=== PATIENT | female | born 2000 | race Two or more races ===

== ENCOUNTER 2023-11-29 10:09 | Emergency (ER) | payer MEDICAID, OTHER ==
[~2023-11-29] VITALS: Ht 154.9 cm; Wt 77.8 kg
[2023-11-29 10:48] VITALS: PULSE 95; RESP 14; TEMP 98.2; O2SAT 99
[2023-11-29 11:38] VITALS: BP 130/73
== END 2023-11-29 11:47 | disposition home or self-care (01) ==
LOC: ER 10:09
DX: H11.31 Conjunctival hemorrhage, right eye (principal); R03.0 Elevated blood-pressure reading, without diagnosis of hypertension

== ENCOUNTER 2024-02-20 10:41 | Observation (INO) | payer MEDICAID ==
[~2024-02-20] VITALS: Ht 152.4 cm; Wt 80.7 kg
[2024-02-20 11:43] LABS: Basophils # (auto) 0 10 ^3/uL (0-0.2); Basophils % (auto) 0.2 % (0.0-2.0); Eosinophils # (auto) 0 10 ^3/uL (0-0.8); Eosinophils % (auto) 0.6 % (0.0-7.0); Hematocrit 33.4 % (36.0-46.0); Hemoglobin 11.2 g/dL (12.2-16.2); Lymphocytes # (auto) 2.2 10 ^3/uL (0.4-5.4); Mean Corpuscular Hemoglobin 28.9 pg (28.0-32.0); Mean Corpuscular Hgb Conc. 33.6 g/dL (32.0-36.0); Mean Corpuscular Volume 86.1 fL (80.0-100.0); Monocytes # (auto) 0.6 10 ^3/uL (0-1.3); Monocytes % (auto) 7.8 % (0.0-12.0); Neutrophils % (auto) 63.4 % (37.0-80.0); Platelet Count (auto) 300 10^3/uL (140-450); Red Blood Cells 3.88 10^6/uL (4.0-5.20); Red Cell Distribution Width 14.7 % (11.8-14.3)
[2024-02-20 11:58] LABS: Partial Thromboplastin Time 28.9 SEC (24.5-34.5); Prothrombin Time 10.6 sec (9.3-11.8)
[2024-02-20 12:07] LABS: Alanine Aminotransferase 16 U/L (7-40); Albumin 3.8 g/dL (3.2-4.8); Alkaline Phosphatase 153 U/L (46-116); Anion Gap 11 (5-15); Aspartate Aminotransferase 19 U/L (13-40); BUN/Creatinine Ratio 10.3 (10.0-20.0); Bilirubin, Total 0.3 mg/dL (0.2-1.0); Blood Urea Nitrogen 6 mg/dL (9-23); Calcium 9.2 mg/dL (8.7-10.4); Carbon Dioxide 22 mmol/L (20-31); Chloride 107 mmol/L (98-107); Glucose 86 mg/dL (74-106); Potassium 3.9 mmol/L (3.5-5.1); Sodium 140 mmol/L (136-145); Total Protein 6.7 g/dL (5.7-8.2); Uric Acid 4.1 mg/dL (3.1-7.8)
--- NOTE | 2024-02-20 12:20 | DVH ---
BIOPHYSICAL PROFILE HISTORY: PIH TECHNIQUE: Multiple transabdominal real-time grayscale sonographic images through the gravid uterus of the fetus with duplex Doppler color flow and M-mode spectral analysis FINDINGS: BIOPHYSICAL PROFILE: breathing score: 2 movement score: 2 tone score: 2 Quantitative SAUL score: 2 (SAUL: 15.4 Cm.) Total score: 8/8 Cervix appears closed and measures 3.7 cm. Single live fetus in cephalic presentation. heart rate 144 beats per minute. Anterior placenta without previa or abruption Nuchal cord is noted. IMPRESSION: 1. Biophysical profile score: 8/8 2. Nuchal cord. HS:Y
[2024-02-20] MEDS ORDERED: PREN-96 PO (12:37)
[2024-02-20] MEDS ORDERED: ASPI81CH74 PO (12:37)
[2024-02-20 13:31] LABS: Protein, Urine 10.1 mg/dL (1-14)
[2024-02-20 13:34] LABS: Creatinine, Urine 61.97 mg/dL (30.0-125.0); Urine Protein/Creatinine Ratio 0.16
[2024-02-20 13:47] LABS: Urine Bacteria FEW /hpf (None Seen); Urine Blood Negative /uL (Negative); Urine Clarity Clear (Clear); Urine Color Light-Yellow (Yellow); Urine Protein, UAD Negative (Negative); Urine Urobilinogen Normal (Negative); Urine WBC 1 /hpf (0 - 5); Urine pH 6.5 (5.0-9.0)
--- NOTE | 2024-02-20 19:20 | DVHDS2 ---
Physician Discharge Progress N Final Diagnosis: ruled out preeclampsia Operations or Procedures: Operations or Procedures S: 23yo IUP@34.3wks, sent from Dr. Rodarte's office for rule out preeclampsia. Denies UCs/LOF/VB/WAGONER/vision changes/RUQ pain. +FM. O: VSS, normotensive (taken sitting) NST reactive (verified by 2 RNs) BPP wnl Laboratory Tests Test 02/20/24 11:25 02/20/24 12:00 Range/Units White Blood Count 8.0 4.4-10.8 10^3/uL Red Blood Count 3.88 L 4.0-5.20 10^6/uL Hemoglobin 11.2 L 12.2-16.2 g/dL Hematocrit 33.4 L 36.0-46.0 % Mean Corpuscular Volume 86.1 80.0-100.0 fL Mean Corpuscular Hemoglobin 28.9 28.0-32.0 pg Mean Corpuscular Hemoglobin Concent 33.6 32.0-36.0 g/dL Red Cell Distribution Width 14.7 H 11.8-14.3 % Platelet Count 300 140-450 10^3/uL Mean Platelet Volume 6.2 L 6.9-10.8 fL Neutrophils (%) (Auto) 63.4 37.0-80.0 % Lymphocytes (%) (Auto) 28.0 10.0-50.0 % Monocytes (%) (Auto) 7.8 0.0-12.0 % Eosinophils (%) (Auto) 0.6 0.0-7.0 % Basophils (%) (Auto) 0.2 0.0-2.0 % Neutrophils # (Auto) 5.0 1.6-8.6 10 ^3/uL Lymphocytes # (Auto) 2.2 0.4-5.4 10 ^3/uL Monocytes # (Auto) 0.6 0-1.3 10 ^3/uL Eosinophils # (Auto) 0 0-0.8 10 ^3/uL Basophils # (Auto) 0 0-0.2 10 ^3/uL Nucleated Red Blood Cells 0.0 % Prothrombin Time 10.6 9.3-11.8 sec Prothrombin Time INR 1.00 0.9-1.15 Activated Partial Thromboplast Time 28.9 24.5-34.5 SEC Sodium Level 140 136-145 mmol/L Potassium Level 3.9 3.5-5.1 mmol/L Chloride Level 107 98-107 mmol/L Carbon Dioxide Level 22 20-31 mmol/L Anion Gap 11 5-15 Blood Urea Nitrogen 6 L 9-23 mg/dL Creatinine 0.58 0.550-1.02 mg/dL Glomerular Filtration Rate Calc 129 >90 mL/min BUN/Creatinine Ratio 10.3 10.0-20.0 Serum Glucose 86 74-106 mg/dL Uric Acid 4.1 3.1-7.8 mg/dL Calcium Level 9.2 8.7-10.4 mg/dL Total Bilirubin 0.3 0.2-1.0 mg/dL Aspartate Amino Transferase (AST) 19 13-40 U/L Alanine Aminotransferase (ALT) 16 7-40 U/L Alkaline Phosphatase 153 H 46-116 U/L Total Protein 6.7 5.7-8.2 g/dL Albumin 3.8 3.2-4.8 g/dL Urine Color Light-yellow Yellow Urine Clarity Clear Clear Urine pH 6.5 5.0-9.0 Urine Specific [place]pe 1.010 1.001-1.035 Urine Protein Negative Negative Urine Ketones Negative Negative Urine Blood Negative Negative /uL Urine Nitrite Negative Negative Urine Bilirubin Negative Negative Urine Urobilinogen Normal Negative mg/dL Urine Leukocyte Esterase Negative Negative /uL Urine RBC <1 0 - 4 /hpf Urine WBC 1 0 - 5 /hpf Urine Squamous Epithelial Cells Few <5 /hpf Urine Bacteria Few H None Seen /hpf Urine Creatinine 61.97 30.0-125.0 mg/dL Urine Protein/Creatinine Ratio 0.16 Urine Glucose Normal Normal mg/dL Urine Total Protein 10.1 1-14 mg/dL A: 23yo IUP@34.3wks Ruled out preeclampsia P: D/C home FKC/PTL/PreE precautions reviewed Dr. Rodarte consulted, agrees with POC. f/u with Dr. Rodarte as scheduled in the office Condition on Discharge: Stable Disposition: Home Discharge Instructions: Diet: Regular Activity: No Restrictions, As Tolerated Medications: see med list Follow Up Care: Specialist: f/u with Dr. Rodarte as scheduled in the office Discharge Statement: "Patient was advised to return to the ER or call 911 if any headaches, dizziness, shortness of breath, chest pain, abdominal pain, bleeding, fevers, or worsening of medical condition. Patient was counseled about treatment plan, medications, possible side effects, patientverbalized understanding. All questions were answered to the best of my ability. This discharge took greater then 30 minutes in planning, reviewing documenta tion, counseling the patient, and discussing with other team members." MIKE ESTRADA CNM Feb 20, 2024 19:19
== END 2024-02-20 14:30 | disposition home or self-care (01) ==
LOC: LDRP 10:41 → UNDOADMOB 10:41 → LDRP 11:06
PROVIDERS: ADMIT Obstetrics & Gynecology; ATTEND Obstetrics & Gynecology
DX: O13.3 Gestational [pregnancy-induced] hypertension without significant proteinuria, third trimester (principal); Z3A.34 34 weeks gestation of pregnancy; Z79.899 Other long term (current) drug therapy
CPT/HCPCS: 36415; 59025; 76818; 80053; 81001; 81002; 82570; 84156; 84550; 85025; 85610; 85730; 94760; G0378

== ENCOUNTER 2024-03-19 13:43 | Observation (INO) | payer MEDICAID ==
[~2024-03-19] VITALS: Ht 152.4 cm; Wt 81.6 kg
[~2024-03-19 13:43] MED LIST: ASPI81CH74 PO; PREN-96 PO
--- NOTE | 2024-03-19 15:44 | DVH ---
BIOPHYSICAL PROFILE HISTORY: R/O PIH TECHNIQUE: Multiple transabdominal real-time grayscale sonographic images through the gravid uterus of the fetus with duplex Doppler color flow and M-mode spectral analysis FINDINGS: BIOPHYSICAL PROFILE: breathing score: 2 movement score: 2 tone score: 2 Quantitative SAUL score: 2 (SAUL: 17.5 Cm.) Total score: 8/8 Single live fetus in cephalic presentation. heart rate 149 beats per minute. Anterior placenta without previa or abruption IMPRESSION: 1. Biophysical profile score: 8/8 HS:Y
[2024-03-19 17:03] LABS: Basophils # (auto) 0 10 ^3/uL (0-0.2); Basophils % (auto) 0.4 % (0.0-2.0); Eosinophils # (auto) 0.1 10 ^3/uL (0-0.8); Eosinophils % (auto) 0.6 % (0.0-7.0); Hematocrit 34.3 % (36.0-46.0); Hemoglobin 11.7 g/dL (12.2-16.2); Lymphocytes # (auto) 2.3 10 ^3/uL (0.4-5.4); Lymphocytes % (auto) 28.2 % (10.0-50.0); Mean Corpuscular Hemoglobin 28.7 pg (28.0-32.0); Mean Corpuscular Hgb Conc. 34.1 g/dL (32.0-36.0); Mean Corpuscular Volume 84.1 fL (80.0-100.0); Monocytes # (auto) 0.5 10 ^3/uL (0-1.3); Monocytes % (auto) 6.8 % (0.0-12.0); Neutrophils # (auto) 5.2 10 ^3/uL (1.6-8.6); Nucleated Red Blood Cells % 0.1 %; Platelet Count (auto) 274 10^3/uL (140-450); Red Blood Cells 4.07 10^6/uL (4.0-5.20); Red Cell Distribution Width 15.8 % (11.8-14.3); White Blood Cell 8.1 10^3/uL (4.4-10.8)
[2024-03-19 17:19] LABS: INR 0.97 (0.9-1.15); Partial Thromboplastin Time 28.8 SEC (24.5-34.5); Prothrombin Time 10.3 sec (9.3-11.8)
[2024-03-19 17:21] LABS: Alanine Aminotransferase 21 U/L (7-40); Albumin 3.8 g/dL (3.2-4.8); Anion Gap 8 (5-15); Aspartate Aminotransferase 25 U/L (13-40); BUN/Creatinine Ratio 14.5 (10.0-20.0); Bilirubin, Total 0.4 mg/dL (0.2-1.0); Calcium 9.1 mg/dL (8.7-10.4); Carbon Dioxide 22 mmol/L (20-31); Glucose 75 mg/dL (74-106); Sodium 137 mmol/L (136-145); Total Protein 6.5 g/dL (5.7-8.2); Uric Acid 4.6 mg/dL (3.1-7.8)
[2024-03-19 17:25] LABS: Alkaline Phosphatase 189 U/L (46-116); Blood Urea Nitrogen 8 mg/dL (9-23); Chloride 107 mmol/L (98-107)
[2024-03-19] MEDS ORDERED: CEPH250C PO (17:41)
[2024-03-19 18:03] LABS: Protein, Urine 7.8 mg/dL (1-14)
[2024-03-19 18:05] LABS: Creatinine, Urine 57.07 mg/dL (30.0-125.0); Urine Protein/Creatinine Ratio 0.14
[2024-03-19 18:30] LABS: Urine Bacteria FEW /hpf (None Seen); Urine Blood Negative /uL (Negative); Urine Clarity Clear (Clear); Urine Color Light-Yellow (Yellow); Urine Protein, UAD Negative (Negative); Urine Specific Gravity 1.014 (1.001-1.035); Urine Squamous Epithelial Cell FEW /hpf (<5); Urine Urobilinogen Normal (Negative); Urine WBC 1 /hpf (0 - 5)
--- NOTE | 2024-03-20 18:10 | DVHDS2 ---
Physician Discharge Progress N Final Diagnosis: pih ruled out Operations or Procedures: Operations or Procedures nst,sono Condition on Discharge: Good Disposition: Home Discharge Instructions: Diet: Regular Activity: Light activity Medications: na Follow Up Care: Specialist: 2d Discharge Statement: "Patient was advised to return to the ER or call 911 if any headaches, dizzi ness, shortness of breath, chest pain, abdominal pain, bleeding, fevers, or worsening of medical condition. Patient was counseled about treatment plan, medications, possible side effects, patientverbalized understanding. All questions were answered to the best of my ability. This discharge took greater then 30 minutes in planning, reviewing documentation, counseling the patient, and discussing with other team members." MAULIK PALMA DO Mar 20, 2024 18:10
== END 2024-03-19 18:00 | disposition home or self-care (01) ==
LOC: UNDOADMOB 13:43 → LDRP 13:43 → UNDODISOB 18:00
PROVIDERS: ADMIT Obstetrics & Gynecology; ATTEND Obstetrics & Gynecology
DX: O13.3 Gestational [pregnancy-induced] hypertension without significant proteinuria, third trimester (principal); Z98.890 Other specified postprocedural states; Z79.899 Other long term (current) drug therapy; Z3A.38 38 weeks gestation of pregnancy
CPT/HCPCS: 36415; 59025; 76818; 80053; 81001; 81002; 82570; 84156; 84550; 85025; 85610; 85730; G0378

== ENCOUNTER 2024-03-22 03:53 | Inpatient (IN) | payer MEDICAID ==
[2024-03-20 11:01] LABS: Basophils # (auto) 0 10 ^3/uL (0-0.2); Basophils % (auto) 0.3 % (0.0-2.0); Eosinophils # (auto) 0 10 ^3/uL (0-0.8); Eosinophils % (auto) 0.7 % (0.0-7.0); Hematocrit 34.9 % (36.0-46.0); Hemoglobin 11.8 g/dL (12.2-16.2); Lymphocytes # (auto) 1.8 10 ^3/uL (0.4-5.4); Lymphocytes % (auto) 28.7 % (10.0-50.0); Mean Corpuscular Hemoglobin 28.5 pg (28.0-32.0); Monocytes # (auto) 0.5 10 ^3/uL (0-1.3); Monocytes % (auto) 8.2 % (0.0-12.0); Neutrophils # (auto) 3.9 10 ^3/uL (1.6-8.6); Neutrophils % (auto) 62.1 % (37.0-80.0); Platelet Count (auto) 269 10^3/uL (140-450); Red Blood Cells 4.15 10^6/uL (4.0-5.20); Red Cell Distribution Width 15.3 % (11.8-14.3); White Blood Cell 6.3 10^3/uL (4.4-10.8)
[2024-03-20 11:16] LABS: INR 0.96 (0.9-1.15); Partial Thromboplastin Time 27.9 SEC (24.5-34.5); Prothrombin Time 10.2 sec (9.3-11.8)
[2024-03-20 11:17] LABS: Urine Bacteria FEW /hpf (None Seen); Urine Blood Negative /uL (Negative); Urine Clarity Turbid (Clear); Urine Color Yellow (Yellow); Urine Mucus FEW (None Seen); Urine Protein, UAD 1+ (Negative); Urine Specific Gravity 1.032 (1.001-1.035); Urine Squamous Epithelial Cell FEW /hpf (<5); Urine Urobilinogen 2 mg/dL (Negative); Urine WBC 5 /hpf (0 - 5)
[2024-03-20 11:21] LABS: Alanine Aminotransferase 17 U/L (7-40); Albumin 3.9 g/dL (3.2-4.8); Anion Gap 10 (5-15); Aspartate Aminotransferase 31 U/L (13-40); BUN/Creatinine Ratio 10.9 (10.0-20.0); Bilirubin, Total 0.4 mg/dL (0.2-1.0); Calcium 9.5 mg/dL (8.7-10.4); Chloride 106 mmol/L (98-107); Glucose 83 mg/dL (74-106); Potassium 3.7 mmol/L (3.5-5.1); Total Protein 7.1 g/dL (5.7-8.2)
[2024-03-20 11:25] LABS: Alkaline Phosphatase 201 U/L (46-116); Blood Urea Nitrogen 6 mg/dL (9-23); Carbon Dioxide 20 mmol/L (20-31); Sodium 136 mmol/L (136-145)
[2024-03-20 11:26] LABS: Amphetamine Screen, Urine Neg (NEGATIVE); Barbiturate Scree,Urine Neg (NEGATIVE); Benzodiazephine Screen, Urine Neg (NEGATIVE); Cannabinoid Screen, Urine Neg (NEGATIVE); Cocaine Screen, Urine Neg (NEGATIVE); Opiate Scree,Urine Neg (NEGATIVE); Phencyclidine Screen, Urine Neg (NEGATIVE)
[2024-03-21 07:06] LABS: RPR Non Reactive (Non Reactive)
--- NOTE | 2024-03-21 11:27 | DVHHP ---
ADMIT DATE: 03/22/2024 CHIEF COMPLAINT: Desires repeat section with bilateral tubal ligation. HISTORY OF PRESENT ILLNESS: The patient is a 23-year-old 2, para 1 with EDC 03/30/2024, estimated gestational age of 39 weeks, admitted for repeat section. The patient had previous section x1. She wants to have bilateral tubal ligation. Risks, complications, failure rate discussed with the patient. Options discussed with the patient. The patient wishes to proceed with tubal ligation. It was explained to the patient that we will be using Filshie clips. Failure rate with that discussed with the patient. PAST MEDICAL HISTORY: None. PAST SURGICAL HISTORY: x1. SOCIAL HISTORY: None. FAMILY HISTORY: None. REVIEW OF SYSTEMS: Consistent with HPI. ALLERGIES: No known drug allergies. PHYSICAL EXAMINATION: VITAL SIGNS: Stable, afebrile. HEENT: Within normal limits. CARDIOVASCULAR: Regular rate and rhythm. LUNGS: Clear to auscultation. BREASTS: Symmetrical. No masses. ABDOMEN: Gravid. PELVIC: Closed, thick, high. EXTREMITIES: No clubbing, cyanosis or edema. IMPRESSION: * Intrauterine at 39 weeks. * Previous section x1. * Desires bilateral tubal ligation. PLAN: Repeat section with bilateral tubal ligation. Informed consent obtained. Risks, complication of surgery including infection, bleeding, hematoma formation, injury to bowel, bladder, surrounding organs, possibility of DVT, pulmonary embolism, risk of anesthesia discussed with the patient. Failure rate with tubal sterilization discussed with the patient. Options reviewed. All questions answered. The patient fully understands. She wishes to proceed with planned procedure. DO LEANDER Paulson/MARLI TID: [id number] RECEIPT: [id number]
[2024-03-22] VITALS (22 sets, daily range): BP systolic 106–165; BP diastolic 50–92; PULSE 82–118; RESP 16–20; TEMP 98.1–101.9; O2SAT 6–99
[~2024-03-22] VITALS: Ht 152.4 cm; Wt 81.6 kg
[~2024-03-22 03:53] MED LIST changes: +CEPH250C PO
[2024-03-22] MEDS ORDERED: METOCLOPRAMIDE HCL 5MG/ml INJ 2ml VIAL IV ONE (04:15)
[2024-03-22] MEDS ORDERED: SODIUM CITR/CITRIC ACID ORAL SOLN 30 ML PO ONE (04:15)
[2024-03-22] MEDS: LACTATED RINGER'S 1,000 ML IV ONE (04:46)
[2024-03-22] MEDS: LACTATED RINGER'S 1,000 ML IV SCH (05:56)
[2024-03-22] MEDS ORDERED: MORPHINE SULF PF 5 MG/10 ML VIAL ONE (06:46)
[2024-03-22] MEDS ORDERED: oxyTOCIN 10 UNIT/ML 10ML VIAL ONE (06:47)
[2024-03-22] MEDS: ceFAZolin 2 GM/D5W50ml 50 ML IV ONE (07:04)
[2024-03-22] MEDS ORDERED: IBUP-1456 PO (07:15)
[2024-03-22] MEDS ORDERED: DOCU-94 PO (07:15)
[2024-03-22] MEDS ORDERED: HYDR-4072 PO (07:15)
[2024-03-22] MEDS ORDERED: LABETALOL HCL 5 MG/ML ML 20ML VIAL IV ONE (07:45)
[2024-03-22] MEDS ORDERED: ONDANSETRON HCL 4 MG/2 ML VIAL ONE (07:46)
[2024-03-22] MEDS ORDERED: HYDROmorphone HCL 2 MG/ML VL/or syr IV PRN ×2 (08:45)
[2024-03-22] MEDS ORDERED: ONDANSETRON HCL 4 MG/2 ML VIAL IV ONE (08:45)
[2024-03-22] MEDS ORDERED: ACETAMINOPHEN IV 1000 MG/100ML (10MG/ML) IV PRN (08:45)
[2024-03-22] MEDS ORDERED: DexAMETHasone SOD PHOS 10MG/1ML VIAL INJ IV PRN (08:45)
[2024-03-22] MEDS ORDERED: ONDANSETRON HCL 4 MG/2 ML VIAL IV PRN (08:45)
[2024-03-22] MEDS ORDERED: NALOXONE HCL 0.4 MG/ML VIAL IV PRN (08:45)
[2024-03-22] MEDS ORDERED: diphenhdrAMINE HCL 50 MG/1 ML VL IV PRN (08:45)
[2024-03-22] MEDS: NALBUPHINE HCL 10 MG/1ml INJECTION SUBCUT ONE (08:45)
[2024-03-22] MEDS ORDERED: hydrALAZINE HCL 20 MG/ML VL IV PRN (09:45)
[2024-03-22] MEDS ORDERED: MEPERIDINE HCL (25 MG/ML) 1ML VIAL IV PRN (10:00)
[2024-03-22 10:38] LABS: Basophils # (auto) 0 10 ^3/uL (0-0.2); Basophils % (auto) 0.1 % (0.0-2.0); Eosinophils # (auto) 0 10 ^3/uL (0-0.8); Eosinophils % (auto) 0.1 % (0.0-7.0); Hematocrit 34.2 % (36.0-46.0); Hemoglobin 11.8 g/dL (12.2-16.2); Lymphocytes # (auto) 1.5 10 ^3/uL (0.4-5.4); Lymphocytes % (auto) 16.6 % (10.0-50.0); Mean Corpuscular Hgb Conc. 34.5 g/dL (32.0-36.0); Mean Corpuscular Volume 84.2 fL (80.0-100.0); Monocytes # (auto) 0.3 10 ^3/uL (0-1.3); Monocytes % (auto) 3.9 % (0.0-12.0); Neutrophils % (auto) 79.3 % (37.0-80.0); Platelet Count (auto) 239 10^3/uL (140-450); Red Blood Cells 4.06 10^6/uL (4.0-5.20); Red Cell Distribution Width 16.1 % (11.8-14.3); White Blood Cell 8.8 10^3/uL (4.4-10.8)
[2024-03-22 10:53] LABS: Alanine Aminotransferase 18 U/L (7-40); Albumin 3.5 g/dL (3.2-4.8); Anion Gap 7 (5-15); Aspartate Aminotransferase 30 U/L (13-40); BUN/Creatinine Ratio 11.5 (10.0-20.0); Bilirubin, Total 0.4 mg/dL (0.2-1.0); Calcium 8.8 mg/dL (8.7-10.4); Carbon Dioxide 23 mmol/L (20-31); Glucose 82 mg/dL (74-106); Potassium 3.7 mmol/L (3.5-5.1); Sodium 137 mmol/L (136-145)
[2024-03-22 10:54] LABS: Total Protein 6.3 g/dL (5.7-8.2)
[2024-03-22 10:59] LABS: Blood Urea Nitrogen 6 mg/dL (9-23); Chloride 107 mmol/L (98-107)
[2024-03-22 11:00] LABS: Alkaline Phosphatase 180 U/L (46-116)
[2024-03-22 11:09] LABS: INR 0.97 (0.9-1.15); Prothrombin Time 10.3 sec (9.3-11.8)
[2024-03-22 11:21] LABS: Uric Acid 5.2 mg/dL (3.1-7.8)
[2024-03-22 11:54] LABS: Protein, Urine 20.9 mg/dL (1-14)
[2024-03-22 11:57] LABS: Creatinine, Urine 56.24 mg/dL (30.0-125.0); Urine Protein/Creatinine Ratio 0.37
--- NOTE | 2024-03-22 14:29 | DVHOP2 ---
Operative Report DATE OF OPERATION: 03/22/24 PREOPERATIVE DIAGNOSES: 1. Term , desires repeat section. 2. Desires bilateral tubal ligation POSTOPERATIVE DIAGNOSES: 1. Term , desires repeat section. 2. Desires bilateral tubal ligation PROCEDURES: Repeat section with bilateral tubal ligation via Filschie Clips SURGEON: Fariha Rodarte D.O./tutu ANESTHESIOLOGIST: Dr. morataya TYPE OF ANESTHESIA : spinal ESTIMATED BLOOD LOSS: 500 mL CONSENT: The patient was informed of the risks and benefits of the procedure. These include but are not limited to , complications of anesthesia, postoperative infection, incomplete relief of symptoms, recurrence of symptoms, damage to blood vessels, nerves and tendons, deep venous thrombosis, pulmonary embolism and possible need for repeat surgery in the future. Surgery was opted. FINDINGS: Baby [f] with apgars [8] and [9]. Grossly normal appearing tubes and ovaries. TISSUE TO PATHOLOGY: Placenta. PROCEDURE IN DETAIL: The patient was taken to the operating room where she was placed under spinal anesthesia. She was then prepped and draped in the usual sterile manner in supine position with a leftward tilt. A Pfannenstiel skin incision was then made 2 cm above the symphysis pubis. This incision was lc ed to the underlying layer of fascia. The fascia was nicked in the midline and the incision was extended laterally. The superior aspect of the fascial incision was grasped and elevated. Underlying rectus muscle was dissected off bluntly. The same procedure was done to the inferior aspect of the fascial incision. The rectus muscles were then in the midline. Peritoneum was identified and entered. Peritoneal incision was extended superiorly and inferiorly with good visualization of the bladder. Bladder blade was inserted. Vesicouterine peritoneum was identified and entered. Lower uterine segment was incised in a transverse fashion. The was delivered from vertex presentation. The was baby [f] with Apgars of [8] and [9]. Placenta was then removed manually. Uterus was exteriorized and cleared off all clots and debris. Uterine incision was repaired using 0 Vicryl in a double-layered fashion. No bleeding was noted. Bilateral tubal ligation was then performed using Shaun. Placed in the ampullary region and identifying the fimbria distally. The isthmic portion of the right tube was clipped using Filschie Clip. The same procedure was done on the opposite side. No bleeding was noted. Peritoneum was closed using 0 Vicryl, fascia was closed using 0 Maxon, and skin was closed using nichol. Estimated blood loss was noted to be 500 mL. The patient tolerated the procedure well. She was taken to the recovery room in stable condition. FARIHA RODARTE DO Mar 22, 2024 14:29
--- NOTE | 2024-03-22 14:32 | POSTOP ---
Post-Operative Note Post-Operative Note Preop Diagnosis term preg desires rcs previous csx1 desires btl Postop Diagnosis: same Operation performed rcs with btl filschie clips Specimen baby girl,apgars 8-9 Anesthesia: Regional Anesthesiologist: nugyen Blood Loss(fluid mgmt) 500ml Surgeon Maulik Rodarte Timber Management Technician tutu Implant filschie Date 03/22/24 Time 14:29 MAULIK RODARTE DO Mar 22, 2024 14:32
[2024-03-22] MEDS: ceFAZolin 1GM/50ML 50 ML IV SCH (15:05)
[2024-03-22] MEDS: ACETAMINOPHEN IV 1000 MG/100ML (10MG/ML) IV PRN (18:19)
[2024-03-22] MEDS: LACTATED RINGER'S 1,350 ML IV ONE (19:14)
--- NOTE | 2024-03-22 19:43 | DVH ---
CHEST RADIOGRAPH Indication: SEPSIS PROTOCAL Technique: Single frontal view of the chest was obtained Comparison: None FINDINGS: Lines and Tubes: None Lungs: No focal consolidation. Pleura: No effusion. No pneumothorax. Cardiomediastinal contours: Unremarkable Bones: No acute osseous abnormality. IMPRESSION: 1. No acute cardiopulmonary disease.
[2024-03-22 20:09] LABS: Basophils # (auto) 0 10 ^3/uL (0-0.2); Basophils % (auto) 0.4 % (0.0-2.0); Eosinophils # (auto) 0 10 ^3/uL (0-0.8); Eosinophils % (auto) 0.1 % (0.0-7.0); Hematocrit 29.7 % (36.0-46.0); Hemoglobin 10.2 g/dL (12.2-16.2); Lymphocytes # (auto) 1.1 10 ^3/uL (0.4-5.4); Mean Corpuscular Hemoglobin 28.9 pg (28.0-32.0); Mean Corpuscular Hgb Conc. 34.4 g/dL (32.0-36.0); Mean Corpuscular Volume 83.9 fL (80.0-100.0); Monocytes # (auto) 0.3 10 ^3/uL (0-1.3); Monocytes % (auto) 4.8 % (0.0-12.0); Neutrophils # (auto) 5.7 10 ^3/uL (1.6-8.6); Neutrophils % (auto) 79.7 % (37.0-80.0); Nucleated Red Blood Cells % 0.1 %; Platelet Count (auto) 208 10^3/uL (140-450); Red Blood Cells 3.55 10^6/uL (4.0-5.20); White Blood Cell 7.2 10^3/uL (4.4-10.8)
[2024-03-22] MEDS: PIPERACILLIN-TAZOB 3.375GM 100 ML IV SCH (20:11)
[2024-03-22 20:23] LABS: Alanine Aminotransferase 19 U/L (7-40); Anion Gap 7 (5-15); Aspartate Aminotransferase 38 U/L (13-40); Calcium 8.7 mg/dL (8.7-10.4); Carbon Dioxide 22 mmol/L (20-31); Chloride 104 mmol/L (98-107); Potassium 3.6 mmol/L (3.5-5.1)
[2024-03-22 20:25] LABS: Albumin 3.2 g/dL (3.2-4.8); Alkaline Phosphatase 154 U/L (46-116); BUN/Creatinine Ratio 8.9 (10.0-20.0); Bilirubin, Total 0.7 mg/dL (0.2-1.0); Blood Urea Nitrogen < 5 mg/dL (9-23); Glucose 113 mg/dL (74-106); Sodium 133 mmol/L (136-145); Total Protein 5.7 g/dL (5.7-8.2)
--- NOTE | 2024-03-22 20:45 | DVHPN2 ---
Progress Note Date Seen: Mar 22, 2024 Subjective POD#0 s/p C/Section earlier today Called by RN for Tmax 101.7F Patient asymptomatic vital signs Vital Sign Date Time Temp Pulse Resp B/P (MAP) Pulse Ox O2 Delivery O2 Flow Rate FiO2 03/22/24 19:00 Room Air 03/22/24 18:30 118 18 140/86 (104) 97 03/22/24 10:45 99.5 99.5 03/22/24 09:08 0 97 medications Current Medications Medications Dose Ordered Sig/Fernando Route Start Time Stop Time Status Last Admin Dose Admin Lactated Ringer's 1,000 ml @ 125 mls/hr Q8H IV 03/22/24 04:15 03/22/24 13:29 125 MLS/HR Diphenhydramine HCl 25 mg Q4HP PRN IV 03/22/24 08:45 Ondansetron HCl 4 mg Q4HP PRN IV 03/22/24 08:45 Ketorolac Tromethamine 30 mg Q6HP PRN IV 03/22/24 08:45 03/27/24 08:44 Hydralazine HCl 5 mg Q20MP PRN IV 03/22/24 09:45 Acetaminophen 1,000 mg Q8HPRN PRN IV 03/22/24 13:45 03/23/24 13:44 03/22/24 18:19 1,000 MG Piperacillin Sod/ Tazobactam Sod 100 ml @ 33.333 mls/ hr Q6H IV 03/22/24 19:00 03/22/24 20:11 33.333 MLS/HR laboratory and microbiology Laboratory Tests 03/22/24 19:14 Test 03/22/24 19:14 Range/Units Serum Glucose 113 H 74-106 mg/dL Objective PATIENT: KELSIE GROVER MISHELACCT: [id number] UNIT: [id number] : 2000 LOC: [facility] ROOM / BED: [address] AGE / SEX: 23 / F ADM STATUS: ADM IN SERVICE 1850 ORDERING PHYSICIAN: KRISTA NY DO PROCEDURE(s): CXRP - CHEST PORTABLE REASON: SEPSIS PROTOCAL ORDER NUMBER(s): [id number], ACCESSION NUMBER(s): [id number] CHEST RADIOGRAPH Indication: SEPSIS PROTOCAL Technique: Single frontal view of the chest was obtained Comparison: None FINDINGS: Lines and Tubes: None Lungs: No focal consolidation. Pleura: No effusion. No pneumothorax. Cardiomediastinal contours: Unremarkable Bones: No acute osseous abnormality. IMPRESSION: 1. No acute cardiopulmonary disease. ATED BY: DAMIAN CEDENO Jr., DO DICTATED DATE/TIME: 03/22/241940 SIGNED BY: DAMIAN CEDENO Jr., SIGNED DATE/TIME: 03/22/241940 CC: Assessment/Plan POD#0 s/p C/Section Postop fever, etiology to be determined Plan: CXR (neg), Labs WNL, Lactate neg, Urine culture and Blood cx x 2 ordered Continue incentive spirometry, antipyretics IV Ofirmev given Empirically started on Zosyn IV broad spectrum antibiotics Plan discussed with: Other (RN) KRISTA NY DO Mar 22, 2024 20:44
[2024-03-22] MEDS: KETOROLAC TROMETH 30 MG/ML 1ML VIAL IV PRN (22:59)
[2024-03-23] VITALS (12 sets, daily range): BP systolic 109–139; BP diastolic 61–90; PULSE 90–114; RESP 15–19; TEMP 97.8–99.3; O2SAT 95–97
--- NOTE | 2024-03-23 02:53 | DVHPN2 ---
Progress Note Date Seen: Mar 23, 2024 Subjective POD#1 s/p R C/S and BTL, doing well Had postop fever, now resolved Denies cough/SOB, minimal lochia. Pain controlled. vital signs Tmax 101.9 F Vital Sign Date Time Temp Pulse Resp B/P (MAP) Pulse Ox O2 Delivery O2 Flow Rate FiO2 03/23/24 01:20 99.0 105 16 109/61 (77) 95 99.0 03/22/24 19:00 Room Air 03/22/24 09:08 0 97 Total Intake and Output 03/22/24 03/22/24 03/23/24 15:00 23:00 07:00 Output Total 450 ml 2325 ml Balance -450 ml -2325 ml medications Current Medications Medications Dose Ordered Sig/Fernando Route Start Time Stop Time Status Last Admin Dose Admin Lactated Ringer's 1,000 ml @ 125 mls/hr Q8H IV 03/22/24 04:15 03/22/24 20:46 125 MLS/HR Diphenhydramine HCl 25 mg Q4HP PRN IV 03/22/24 08:45 Ondansetron HCl 4 mg Q4HP PRN IV 03/22/24 08:45 Ketorolac Tromethamine 30 mg Q6HP PRN IV 03/22/24 08:45 03/27/24 08:44 03/22/24 22:59 30 MG Hydralazine HCl 5 mg Q20MP PRN IV 03/22/24 09:45 Acetaminophen 1,000 mg Q8HPRN PRN IV 03/22/24 13:45 03/23/24 13:44 03/22/24 18:19 1,000 MG Piperacillin Sod/ Tazobactam Sod 100 ml @ 33.333 mls/ hr Q6H IV 03/22/24 19:00 03/23/24 01:06 33.333 MLS/HR laboratory and microbiology Laboratory Tests 03/22/24 19:14 Test 03/22/24 19:14 Range/Units Serum Glucose 113 H 74-106 mg/dL Objective O: VS stable. Chest: heart and lung sounds normal. Abd soft, non-tender, fundus firm, BS, no rebound or guarding, Incision - dressing and incision clean, dry, intact Ext Neg Homans, Non-tender, edema Lochia - minimal Labs Reviewed Assessment/Plan 23y s/p R C/S and BTL Postop fever, resolved - CXR neg, Labs WNL. Pending Urine Cx and Blood Cx - Continue Zosyn IV - Repeat CBC in a.m. Plan discussed with: Patient, Other (RN) KRISTA NY DO Mar 23, 2024 02:52
[2024-03-23] MEDS ORDERED: BISACODYL 10 MG RECT SUPP PR PRN (08:45)
[2024-03-23] MEDS ORDERED: HYDROcodone-ACET 5/325MG TAB PO PRN (08:45)
[2024-03-23] MEDS: SIMETHICONE 80 MG CHEWABLE TABLET PO SCH (11:12)
[2024-03-23] MEDS: DOCUSATE CALCIUM 240 MG CAP PO SCH (11:12)
[2024-03-23] MEDS: DOCUSATE SOD 100 MG CAP PO SCH (11:12)
[2024-03-23] MEDS: IBUPROFEN 800 MG TAB PO PRN (12:57)
[2024-03-23] MEDS: HYDROcodone-ACET 5/325MG TAB PO PRN (15:42)
[2024-03-24 03:30] VITALS: BP 132/86; PULSE 95; RESP 16; TEMP 98.2; O2SAT 98
[2024-03-24 06:34] VITALS: BP 119/82; PULSE 106; RESP 15; TEMP 98.3; O2SAT 97
--- NOTE | 2024-03-24 09:24 | DVHDS2 ---
Physician Discharge Progress N Final Diagnosis: Term , delivered Operations or Procedures: Operations or Procedures Repeat and BTL Commentary: Commentary Normal course, uncomplicated Condition on Discharge: Stable Disposition: Home Discharge Instructions: Diet: Regular Activity: Light activity Activity comment: Pelvic rest x 6 weeks Follow Up/Referral: [address] Rodarte for wound check Medications: see [facility] [place], Ibuprofen Follow Up Care: Discharge Statement: "Patient was advised to return to the ER or call 911 if any headaches, dizziness, shortness of breath, chest pain, abdominal pain, bleeding, fevers, or worsening of medical condition. Patient was counseled about treatment plan, medications, possible side effects, patientverbalized understanding. All questions were answered to the best of my ability. This discharge took greater then 30 minutes in planning, reviewing documentation, counseling the patient, and discussing with other team members." KRISTA NY DO Mar 24, 2024 09:24
[2024-03-24 11:21] VITALS: BP 140/86; PULSE 99; RESP 15; TEMP 99.3; O2SAT 97
== END 2024-03-24 12:55 | disposition home or self-care (01) | DRG 539 ==
LOC: LDRP 03:53
PROVIDERS: ADMIT Obstetrics & Gynecology; ATTEND Obstetrics & Gynecology
PROC: 0UL70CZ Occlusion of Bilateral Fallopian Tubes with Extraluminal Device, Open Approach (ICD-10-PCS; 2024-03-22)
PROC: 10D00Z1 Extraction of Products of Conception, Low, Open Approach (ICD-10-PCS; principal; 2024-03-22 07:13)
DX: O34.211 Maternal care for low transverse scar from previous cesarean delivery (principal); R50.82 Postprocedural fever; Z37.0 Single live birth; Z3A.39 39 weeks gestation of pregnancy; Z30.2 Encounter for sterilization
CPT/HCPCS: 36415; 71045; 80053; 80307; 81001; 82570; 83605; 84156; 84550; 85025; 85610; 85730; 86592; 86780; 86803; 86850; 86900; 86901; 87040; 87086; 94760; 94762; 96360; 96361; G0378; J0131; J1885; J2405; J2543; J2590